=== PATIENT | female | born 1975 | race African-American/Black ===

== ENCOUNTER 2018-05-03 08:22 | Emergency (ER) | payer SELFPAY ==
[~2018-05-03] VITALS: Ht 170.2 cm; Wt 69.9 kg
[2018-05-03] MEDS ORDERED: IV NORMAL SALINE 1000ML BAG 1,000 ML IV ONE (09:00)
[2018-05-03] MEDS ORDERED: DEXAMETHASONE SOD PHOS 20 MG/5 ML VIAL. IV ONE (09:00)
[2018-05-03] MEDS ORDERED: MORPHINE SULFATE 10 MG/ML VIAL. IV ONE (09:00)
[2018-05-03] MEDS ORDERED: LABETALOL 20 MG/4 ML DISP.SYRIN. IVP ONE (09:00)
--- NOTE | 2018-05-03 09:01 | PHYS DOC ---
Past Medical History Past Medical History: Hypertension Past Surgical History: No Surgical History Alcohol Use: None Drug Use: None Adult General Chief Complaint Chief Complaint: SORE THROAT HPI HPI Patient is a 43 year old female with history of hypertension who presents today complaining of sore throat and enlarged tonsils for 2 days. Patient states she cannot swallow for the last 2 days. Patient denies any fever. Denies any coughing or congestion. Review of Systems Review of Systems Constitutional: Denies fever or chills [] Eyes: Denies change in visual acuity, redness, or eye pain [] HENT: Reports sore throat. Denies nasal congestion Respiratory: Denies cough or shortness of breath [] Cardiovascular: No additional information not addressed in HPI [] GI: Denies abdominal pain, nausea, vomiting, bloody stools or diarrhea [] : Denies dysuria or hematuria [] Musculoskeletal: Denies back pain or joint pain [] Integument: Denies rash or skin lesions [] Neurologic: Denies headache, focal weakness or sensory changes [] All other systems were reviewed and found to be within normal limits, except as documented in this note. Current Medications Current Medications Current Medications Medications (Trade) Dose Ordered Sig/Shayy Start Time Stop Time Status Last Admin Dose Admin Clindamycin Phosphate 50 ml @ 100 mls/hr 1X ONCE 05/03/18 11:30 05/03/18 11:59 DC 05/03/18 12:05 100 MLS/HR Dexamethasone Sodium Phosphate (Decadron) 10 mg 1X ONCE 05/03/18 09:00 05/03/18 09:01 DC 05/03/18 09:11 10 MG Info (CONTRAST GIVEN -- Rx MONITORING) 1 each PRN DAILY PRN 05/03/18 10:00 05/05/18 09:59 Iohexol (Omnipaque 300 Mg/ml) 70 ml 1X ONCE 05/03/18 10:00 05/03/18 10:01 DC 05/03/18 10:12 70 ML Labetalol HCl (Normodyne Iv Push) 10 mg 1X ONCE 05/03/18 09:00 05/03/18 09:01 DC 05/03/18 09:13 10 MG Morphine Sulfate (Morphine Sulfate) 5 mg 1X ONCE 05/03/18 09:00 05/03/18 09:01 DC 05/03/18 09:16 5 MG Potassium Chloride (KCl Oral Soln) 40 meq 1X ONCE 05/03/18 10:30 05/03/18 10:31 DC 05/03/18 10:46 40 MEQ Sodium Chloride 1,000 ml @ 1,000 mls/hr 1X ONCE 05/03/18 09:00 05/03/18 09:59 DC 05/03/18 09:10 1,000 MLS/HR Allergies Allergies Allergies Coded Allergies Type Severity Reaction Last Updated Verified No Known Drug Allergies 05/03/18 No Physical Exam Physical Exam Constitutional: Well developed, well nourished, no acute distress, non-toxic appearance. [] HENT: Normocephalic, atraumatic, bilateral external ears normal, oropharynx moist, no oral exudates, nose normal. [] +3 tonsils with erythema mostly on the right side, +3 uvula. +3 right anterior cervical adenopathy, Patient not tolerating secretions well, has hot potato voice. Eyes: PERRLA, EOMI, conjunctiva normal, no discharge. [] Neck: Normal range of motion, no tenderness, supple, no stridor. [] Cardiovascular:Heart rate regular rhythm, no murmur [] Lungs & Thorax: Bilateral breath sounds clear to auscultation [] Abdomen: Bowel sounds normal, soft, no tenderness, no masses, no pulsatile masses. [] Skin: Warm, dry, no erythema, no rash. [] Back: No tenderness, no CVA tenderness. [] Extremities: No tenderness, no cyanosis, no clubbing, ROM intact, no edema. [] Neurologic: Alert and oriented X 3, normal motor function, normal sensory function, no focal deficits noted. [] Psychologic: Affect normal, judgement normal, mood normal. [] Current Patient Data Vital Signs Vital Signs Date Time Temp Pulse Resp B/P (MAP) Pulse Ox O2 Delivery O2 Flow Rate FiO2 05/03/18 10:26 99 24 181/131 (148) 97 05/03/18 08:31 98.2 Room Air 98.2 Lab Values Laboratory Tests Test 05/03/18 08:29 05/03/18 09:05 05/03/18 10:20 Group A Streptococcus Rapid Negative (NEGATIVE) White Blood Count 17.3 x10^3/uL (4.0-11.0) H Red Blood Count 5.45 x10^6/uL (3.50-5.40) H Hemoglobin 15.8 g/dL (12.0-15.5) H Hematocrit 47.6 % (36.0-47.0) H Mean Corpuscular Volume 87 fL (79-100) Mean Corpuscular Hemoglobin 29 pg (25-35) Mean Corpuscular Hemoglobin Concent 33 g/dL (31-37) Red Cell Distribution Width 14.0 % (11.5-14.5) Platelet Count 153 x10^3/uL (140-400) Neutrophils (%) (Auto) 86 % (31-73) H Lymphocytes (%) (Auto) 7 % (24-48) L Monocytes (%) (Auto) 7 % (0-9) Eosinophils (%) (Auto) 0 % (0-3) Basophils (%) (Auto) 0 % (0-3) Neutrophils # (Auto) 14.8 x10^3uL (1.8-7.7) H Lymphocytes # (Auto) 1.1 x10^3/uL (1.0-4.8) Monocytes # (Auto) 1.2 x10^3/uL (0.0-1.1) H Eosinophils # (Auto) 0.1 x10^3/uL (0.0-0.7) Basophils # (Auto) 0.1 x10^3/uL (0.0-0.2) Segmented Neutrophils % 84 % (35-66) H Lymphocytes % 9 % (24-48) L Monocytes % 7 % (0-10) Toxic Vacuolation Slight Platelet Estimate Adequate (ADEQUATE) Large Platelets Occ Sodium Level 139 mmol/L (136-145) Potassium Level 3.0 mmol/L (3.5-5.1) L Chloride Level 104 mmol/L (98-107) Carbon Dioxide Level 22 mmol/L (21-32) Anion Gap 13 (6-14) Blood Urea Nitrogen 6 mg/dL (7-20) L Creatinine 0.9 mg/dL (0.6-1.0) Estimated GFR (Cockcroft-Gault) 83.5 BUN/Creatinine Ratio 7 (6-20) Glucose Level 166 mg/dL (70-99) H Calcium Level 9.7 mg/dL (8.5-10.1) Total Bilirubin 1.9 mg/dL (0.2-1.0) H Aspartate Amino Transferase (AST) 12 U/L (15-37) L Alanine Aminotransferase (ALT) 23 U/L (14-59) Alkaline Phosphatase 80 U/L (46-116) Total Protein 8.4 g/dL (6.4-8.2) H Albumin 3.9 g/dL (3.4-5.0) Albumin/Globulin Ratio 0.9 (1.0-1.7) L Ethyl Alcohol Level < 10 mg/dL (0-10) Urine Opiates Screen Pos (NEG) Urine Methadone Screen Neg (NEG) Urine Barbiturates Neg (NEG) Urine Phencyclidine Screen Neg (NEG) Urine Amphetamine/Methamphetamine Neg (NEG) Urine Benzodiazepines Screen Neg (NEG) Urine Cocaine Screen Pos (NEG) Urine Cannabinoids Screen Pos (NEG) Urine Ethyl Alcohol Neg (NEG) Laboratory Tests 05/03/18 09:05 Laboratory Tests 05/03/18 09:05 EKG EKG [] Radiology/Procedures Radiology/Procedures []PROCEDURE: CT SOFT TISSUE NECK W/CONTRAST CT SOFT TISSUE NECK W/CONTRAST Indication: Right side sore throat for 2 days Technique: Postcontrast CT imaging was performed of the neck, multiplanar reconstruction images submitted. One or more of the following individualized dose reduction techniques were utilized for this examination: 1. Automated exposure control 2. Adjustment of the mA and/or kV according to patient size 3. Use of iterative reconstruction technique. Contrast: 70 cc Omnipaque 300 Comparison: None Findings: There is severe asymmetric enlargement and heterogeneity of the right tonsils, associated heterogeneous enhancement. There is more focal area of hypodensity in this region about 1.2 cm in size as seen axial image 48 series 2 although density measurements of 30 Hounsfield units and no defined wall at this time. More superiorly, there is also focus of heterogeneous enhancement with focus of foci of internal gas as seen on axial image 55, focus of hyperdensity about 1.6 cm in size also without defined peripheral wall. There is other adjacent abnormal asymmetric soft tissue inflammatory type change extending more inferiorly in the soft tissues, also enlargement and relative hyperenhancement of the right submandibular gland. There is displacement of the airway to the left which is narrowed at the level of the inferior nasopharynx as well as at the level of the tonsils.. There is also some relative asymmetric density of the right piriform sinus comparing and the right vallecula. Cords are symmetric in appearance. There is a small hypodense lesion of the left thyroid gland about 0.7 cm. Epiglottis is not significantly thickened. There is right level 2 node largest of these about 0.9 cm short axis dimension. Parotid glands are fairly symmetric in appearance. Paranasal sinuses are overall aerated. Mastoid air cells are overall aerated. IMPRESSION: 1. There is prominent abnormal asymmetric inflammatory change of the right neck and tonsils, compatible with tonsillitis and cellulitis as well as enlargement of the hyperenhancing right submandibular gland compatible with sialadenitis. There are some foci of abnormal density of the right tonsils although no defined peripheral wall at this time, suggestive of phlegmon rather than focal drainable abscesses at this time. There is resultant narrowing and displacement of the airway to the left. 2. There is a small hypodense lesion left thyroid gland. Electronically signed by: Cheyenne Solorio MD (05/03/2018 11:18 AM) [id number] DICTATED and SIGNED BY: CHEYENNE SOLORIO MD DATE: 05/03/18 1108 Course & Med Decision Making Course & Med Decision Making Pertinent Labs and Imaging studies reviewed. (See chart for details) This is a 43-year-old female patient presenting to the ED today with complaints of sore throat and inability to swallow since yesterday. Not tolerating secretions well. Patient is maintaining airway. Vitals on arrival to the ED temperature 98.7, heart rate 97, blood pressure 197/ 132, patient has history of hypertension, unknown what medication she is supposed to be on, respiration 20, O2 sats 95% on room air. CBC with a WBC of 17.3 and a left shift, CMP with potassium of 3.0, patient was given oral liquid potassium replacement in the ED. Vitals on arrival to the ED temperature 98.2, heart rate 97, O2 sats 98% on room air, blood pressure 192/132. Patient was given labetalol. Patient was given Decadron IV, IV fluids, clindamycin. CT of neck soft tissue IMPRESSION-There is prominent abnormal asymmetric inflammatory change of the right neck and tonsils, compatible with tonsillitis and cellulitis as well as enlargement of the hyperenhancing right submandibular gland compatible with sialadenitis. There are some foci of abnormal density of the right tonsils although no defined peripheral wall at this time, suggestive of phlegmon rather than focal drainable abscesses at this time. There is resultant narrowing and displacement of the airway to the left. There is a small hypodense lesion left thyroid gland. 11:39 Spoke with Dorinda at [facility] transfer line, awaiting accepting physician 12:24 pm patient accepted at in by [facility] to transport Gloria Disclaimer Gloria Disclaimer This electronic medical record was generated, in whole or in part, using a voice recognition dictation system. Departure Departure Impression: Primary Impression: Acute tonsillitis Additional Impression: Hypertension, accelerated Disposition: 05 TRANSFER OTHER Condition: STABLE Problem Qualifiers Primary Impression: Acute tonsillitis Pharyngitis/tonsillitis etiology: unspecified etiology Qualified Codes: J03.90 - Acute tonsillitis, unspecified KEYLA PHILIP APRN May 03, 2018 09:01
[2018-05-03 09:20] LABS: BASO # 0.1 x10^3/uL (0.0-0.2); BASO % 0 % (0-3); EOS # 0.1 x10^3/uL (0.0-0.7); EOS % 0 % (0-3); HEMATOCRIT 47.6 % (36.0-47.0); HEMOGLOBIN 15.8 g/dL (12.0-15.5); LYMPH # 1.1 x10^3/uL (1.0-4.8); LYMPH % 7 % (24-48); MEAN CORPUSCULAR HEMOGLOBIN 29 pg (25-35); MEAN CORPUSCULAR HGB CONC 33 g/dL (31-37); MEAN CORPUSCULAR VOLUME 87 fL (79-100); MONO # 1.2 x10^3/uL (0.0-1.1); MONO % 7 % (0-9); NEUT # 14.8 x10^3uL (1.8-7.7); NEUT % 86 % (31-73); PLATELET COUNT 153 x10^3/uL (140-400); RED BLOOD COUNT 5.45 x10^6/uL (3.50-5.40); WHITE BLOOD COUNT 17.3 x10^3/uL (4.0-11.0)
[2018-05-03 09:35] LABS: ALBUMIN 3.9 g/dL (3.4-5.0); ALBUMIN/GLOBULIN RATIO 0.9 (1.0-1.7); CALCIUM 9.7 mg/dL (8.5-10.1); CREATININE 0.9 mg/dL (0.6-1.0); GFR 83.5; TOTAL BILIRUBIN 1.9 mg/dL (0.2-1.0); TOTAL PROTEIN 8.4 g/dL (6.4-8.2)
[2018-05-03] MEDS ORDERED: IOHEXOL 300 MG/ML 100ML VIAL. IV ONE (10:00)
[2018-05-03] MEDS ORDERED: CONTRAST GIVEN. MC PRN (10:00)
[2018-05-03] MEDS ORDERED: POTASSIUM CHLORIDE 20 MEQ/15 ML ORAL LIQUID. PO ONE (10:30)
[2018-05-03 10:40] LABS: BARBITURATES NEG (NEG); BENZODIAZEPINES NEG (NEG); CANNABINOIDS POS (NEG); COCAINE POS (NEG); METHADONE NEG (NEG); OPIATES POS (NEG); PHENCYCLIDINE NEG (NEG)
[2018-05-03 10:43] LABS: AMPHETAMINE/METHAMPHETAMINE NEG (NEG)
[2018-05-03 11:07] LABS: % LYMPHS 9 % (24-48); % MONOS 7 % (0-10); % SEGS 84 % (35-66); PLT ESTIMATE ADEQUATE (ADEQUATE); TOXIC VACUOLATION SLIGHT
--- NOTE | 2018-05-03 11:21 | RAD ---
CT SOFT TISSUE NECK W/CONTRAST Indication: Right side sore throat for 2 days Technique: Postcontrast CT imaging was performed of the neck, multiplanar reconstruction images submitted. One or more of the following individualized dose reduction techniques were utilized for this examination: 1. Automated exposure control 2. Adjustment of the mA and/or kV according to patient size 3. Use of iterative reconstruction technique. Contrast: 70 cc Omnipaque 300 Comparison: None Findings: There is severe asymmetric enlargement and heterogeneity of the right tonsils, associated heterogeneous enhancement. There is more focal area of hypodensity in this region about 1.2 cm in size as seen axial image 48 series 2 although density measurements of 30 Hounsfield units and no defined wall at this time. More superiorly, there is also focus of heterogeneous enhancement with focus of foci of internal gas as seen on axial image 55, focus of hyperdensity about 1.6 cm in size also without defined peripheral wall. There is other adjacent abnormal asymmetric soft tissue inflammatory type change extending more inferiorly in the soft tissues, also enlargement and relative hyperenhancement of the right submandibular gland. There is displacement of the airway to the left which is narrowed at the level of the inferior nasopharynx as well as at the level of the tonsils.. There is also some relative asymmetric density of the right piriform sinus comparing and the right vallecula. Cords are symmetric in appearance. There is a small hypodense lesion of the left thyroid gland about 0.7 cm. Epiglottis is not significantly thickened. There is right level 2 node largest of these about 0.9 cm short axis dimension. Parotid glands are fairly symmetric in appearance. Paranasal sinuses are overall aerated. Mastoid air cells are overall aerated. IMPRESSION: 1. There is prominent abnormal asymmetric inflammatory change of the right neck and tonsils, compatible with tonsillitis and cellulitis as well as enlargement of the hyperenhancing right submandibular gland compatible with sialadenitis. There are some foci of abnormal density of the right tonsils although no defined peripheral wall at this time, suggestive of phlegmon rather than focal drainable abscesses at this time. There is resultant narrowing and displacement of the airway to the left. 2. There is a small hypodense lesion left thyroid gland. Electronically signed by: Joshua Bae MD (05/03/2018 11:18 AM) [id number]
[2018-05-03] MEDS ORDERED: CLINDAMYCIN 900MG PREMIX 50 ML IV ONE (11:30)
[2018-05-03 13:15] VITALS: BP 183/104
== END 2018-05-03 14:04 | disposition short-term general hospital (02) ==
LOC: ER 08:22
DX: J03.90 Acute tonsillitis, unspecified (principal); I10 Essential (primary) hypertension
CPT/HCPCS: 36415; 70491; 80053; 80307; 85007; 85025; 87040; 87070; 87880; 96365; 96375; 99285; G0480; J1100; J2270; J3490; J7030; Q9967; G0479